=== PATIENT | female | born 1995 | race Caucasian/White ===

== ENCOUNTER 2017-01-28 11:21 | Emergency (ER) | payer MEDICAID ==
[~2017-01-28] VITALS: Ht 172.7 cm; Wt 83.9 kg
[2017-01-28 11:21] VITALS: BP_SYST 123
[2017-01-28] MEDS ORDERED: IBUPROFEN 600 MG TABLET PO ONE (12:30)
[2017-01-28 12:46] VITALS: BP_SYST 119
== END 2017-01-28 12:46 | disposition home or self-care (01) ==
LOC: SED 11:21
DX: S16.1XXA Strain of muscle, fascia and tendon at neck level, initial encounter (principal); R51 Headache; Z86.59 Personal history of other mental and behavioral disorders; V89.2XXA Person injured in unspecified motor-vehicle accident, traffic, initial encounter; Y93.89 Activity, other specified; Y92.410 Unspecified street and highway as the place of occurrence of the external cause; Y99.8 Other external cause status
CPT/HCPCS: 99283